=== PATIENT | male | born 1995 | race American Indian/Alaskan Native ===

== ENCOUNTER 2021-04-17 10:12 | Emergency (ER) | payer SELFPAY ==
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
[2021-04-17] MEDS ORDERED: ACETAMINOPHEN 325 MG TAB PO ONE (13:00)
[2021-04-17] MEDS ORDERED: IBUPROFEN 400 MG TAB PO ONE (13:00)
[2021-04-17 14:39] VITALS: BP 129/75
== END 2021-04-17 14:38 | disposition home or self-care (01) ==
LOC: ED 10:12
DX: M25.512 Pain in left shoulder (principal); V02.90XA Pedestrian on foot injured in collision with two- or three-wheeled motor vehicle, unspecified whether traffic or nontraffic accident, initial encounter; Y93.89 Activity, other specified; Y92.488 Other paved roadways as the place of occurrence of the external cause; Y99.8 Other external cause status
CPT/HCPCS: 99283